=== PATIENT | female | born 1990 | race Caucasian/White ===

== ENCOUNTER 2018-05-13 13:55 | Emergency (ER) | payer MEDICAID, OTHER ==
[2018-05-13 14:03] VITALS: BP 101/56; PULSE 76; RESP 18; TEMP 99; O2SAT 100
--- NOTE | 2018-05-13 14:58 | C.PDOC ---
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 no numbness or tingling. no hx shoulder dislocation. Time Seen by Provider: 05/13/18 14:05 Chief Complaint (Nursing): Upper Extremity Problem/Injury History Per: Patient History/Exam Limitations: no limitations Onset/Duration Of Symptoms: Hrs (3) Current Symptoms Are (Timing): Still Present Quality: "Pain" Severity: Moderate Exacerbating Factor(s): Movement Past Medical History Reviewed: Historical Data, Nursing Documentation, Vital Signs Vital Signs: Last Vital Signs Temp 99.0 F 05/13/18 14:01 Pulse 76 05/13/18 14:01 Resp 18 05/13/18 14:01 BP 101/56 L 05/13/18 14:01 Pulse Ox 100 05/13/18 14:01 - Medical History PMH: Asthma Surgical History: Cholecystectomy Family History: States: Unknown Family Hx - Social History Hx Tobacco Use: No Hx Alcohol Use: Yes Hx Substance Use: No - Immunization History Hx Tetanus Toxoid Vaccination: No Hx Influenza Vaccination: No Hx Pneumococcal Vaccination: No Review Of Systems Constitutional: Negative for: Fever Cardiovascular: Negative for: Chest Pain Musculoskeletal: Positive for: Shoulder Pain. Negative for: Neck Pain, Back Pain, Hand Pain Neurological: Negative for: Weakness, Numbness Physical Exam - Physical Exam Appears: Non-toxic, No Acute Distress, Other (obese female sitting in chair sleeping. easily aroused. ) Skin: Warm, Dry Head: Atraumatic, Normacephalic Neck: No Midline Cervical Tenderness, Supple Extremity: Normal ROM, Tenderness (left anterior shoulder by bicep tendon insertion), Other (from at left shoulder, no signs of discloation, from at wrist and elbow. ) Pulses: Left Radial: Normal, Right Radial: Normal Neurological/Psych: Oriented x3, Normal Speech, Normal Cognition, Normal Motor, Normal Sensation ED Course And Treatment O2 Sat by Pulse Oximetry: 100 Medical Decision Making Medical Decision Making: pt with mild tenderness anterior left shoulder with from normal sensation and motor. d/c home with tylenol and motrin., f/u ortho Disposition Counseled Patient/Family Regarding: Diagnosis, Need For Followup, Rx Given - Disposition Referrals: [facility] [Outside] Manoj Louie III, MD [Staff Provider] - Disposition: HOME/ ROUTINE Disposition Time: 15:02 Condition: GOOD Additional Instructions: Avoid heavy lifting. Cold compresses to shoulder. Tylenol or Motrin for pain. Follow up with orthopedics. Prescriptions: Acetaminophen [Tylenol 325mg tab] 650 mg PO Q4 #50 tab Instructions: Shoulder Sprain (DC) Forms: General Discharge Instructions, [facility] ([place]), Work Excuse - Clinical Impression Clinical Impression: Sprain of shoulder, left
== END 2018-05-13 15:08 | disposition home or self-care (01) ==
LOC: C.ER 13:55
DX: S43.402A Unspecified sprain of left shoulder joint, initial encounter (principal); X50.9XXA Other and unspecified overexertion or strenuous movements or postures, initial encounter